=== PATIENT | male | born 1955 | race Caucasian/White ===

== ENCOUNTER 2024-04-26 20:03 | Emergency (ER) | payer MEDICARE ==
[~2024-04-26] VITALS: Ht 182.9 cm; Wt 77.0 kg
[2024-04-26 22:09] VITALS: BP 133/71
[2024-04-26] MEDS ORDERED: FLUORESCEIN SODIUM 1 MG EA OD ONE (23:20)
[2024-04-26] MEDS ORDERED: OPHTHALMIC IRRIGATION SOLUTION 118 ML BTL OS ONE (23:20)
[2024-04-26] MEDS ORDERED: TETRACAINE HCL 0.5 %/4 ML SOL OS ONE (23:20)
[2024-04-26] MEDS ORDERED: ERYTHROMYCIN OPTHALMIC 5 MG/GM TUBE OS ONE (23:20)
[2024-04-26] MEDS ORDERED: METFORMIN HCL1000 MG PO (23:38)
[2024-04-26] MEDS ORDERED: SINGULAIR10 MG PO (23:41)
[2024-04-26] MEDS ORDERED: MOUNJARO (23:41)
[2024-04-26] MEDS ORDERED: ATORVASTATIN CA20 MG PO (23:41)
[2024-04-26] MEDS ORDERED: KERENDIA20 MG (23:42)
[2024-04-26] MEDS ORDERED: AMLODIPINE BES2.5 MG PO (23:43)
[2024-04-26] MEDS ORDERED: OLMESARTAN MEDOX5 MG (23:43)
[2024-04-26] MEDS ORDERED: JARDIANCE25 MG PO (23:43)
[2024-04-27] MEDS ORDERED: ERYTHROMYCIN O3.5 GM OS (00:13)
[2024-04-27 00:48] VITALS: BP 133/71
== END 2024-04-27 01:06 | disposition home or self-care (01) ==
LOC: ED 20:03
DX: S05.02XA Injury of conjunctiva and corneal abrasion without foreign body, left eye, initial encounter (principal); I12.9 Hypertensive chronic kidney disease with stage 1 through stage 4 chronic kidney disease, or unspecified chronic kidney disease; E11.22 Type 2 diabetes mellitus with diabetic chronic kidney disease; N18.30 Chronic kidney disease, stage 3 unspecified; Z79.84 Long term (current) use of oral hypoglycemic drugs; W61.33XA Pecked by chicken, initial encounter